=== PATIENT | male | born 1985 | race American Indian/Alaskan Native ===

== ENCOUNTER 2018-12-06 02:51 | Emergency (ER) | payer OTHER ==
[2018-12-06 03:32] VITALS: BP 156/94
[2018-12-06] MEDS ORDERED: LORazepam 2 MG/ML Syringe IVPUSH ONE (03:42)
[2018-12-06] MEDS ORDERED: Sodium Chloride 0.9% 1,000 ML IV ONE (03:42)
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
[2018-12-06 04:31] LABS: ANION GAP 17.5; CHLORIDE,CL 101 mmol/L (101-111); SODIUM,NA 138 mmol/L (135-145)
== END 2018-12-06 04:50 | disposition home or self-care (01) ==
LOC: DL.ED 02:51
DX: S63.619A Unspecified sprain of unspecified finger, initial encounter (principal); S00.33XA Contusion of nose, initial encounter; F10.10 Alcohol abuse, uncomplicated; F17.210 Nicotine dependence, cigarettes, uncomplicated; I10 Essential (primary) hypertension; Y04.0XXA Assault by unarmed brawl or fight, initial encounter
CPT/HCPCS: 36415; 70450; 70486; 73140; 80053; 85025; 96361; 96374; 99284; G0480; J2060; J7030

== ENCOUNTER 2018-12-13 04:13 | Emergency (ER) | payer OTHER ==
[2018-12-13] MEDS ORDERED: diphenhydrAMINE 25 MG Tab PO ONE (04:14)
[2018-12-13 04:22] VITALS: BP 132/107
[2018-12-13] MEDS ORDERED: Sodium Chloride 0.9% 1,000 ML IV ONE (04:30)
--- NOTE | 2018-12-13 04:33 | EDM.PDOCBH ---
ED HPI GENERAL MEDICAL PROBLEM - General Chief Complaint: Drug or Alcohol Abuse Stated Complaint: PERSONAL Time Seen by Provider: 12/13/18 04:31 Source of Information: Reports: Patient History Limitations: Reports: No Limitations - History of Present Illness INITIAL COMMENTS - FREE TEXT/NARRATIVE: states been drinking again and has shakes again. - Related Data Allergies Allergy/AdvReac Type Severity Reaction Status Date / Time No Known Allergies Allergy Verified 12/13/18 04:20 Home Meds: Home Meds . [No Known Home Meds] 10/31/18 [History] Past Medical History HEENT History: Reports: None Cardiovascular History: Reports: Hypertension Respiratory History: Reports: None Gastrointestinal History: Reports: Hepatitis Genitourinary History: Reports: None Musculoskeletal History: Reports: None Neurological History: Reports: Seizure Other Neuro History: when detoxing Psychiatric History: Reports: Addiction, Anxiety, Panic Attack Endocrine/Metabolic History: Reports: Obesity/BMI 30+ Hematologic History: Reports: None Immunologic History: Reports: None Oncologic (Cancer) History: Reports: None Dermatologic History: Reports: None - Infectious Disease History Infectious Disease History: Reports: Hepatitis C - Past Surgical History Head Surgeries/Procedures: Reports: None Cardiovascular Surgical History: Reports: None GI Surgical History: Reports: None Endocrine Surgical History: Reports: None Neurological Surgical History: Reports: None Dermatological Surgical History: Reports: None Social & Family History - Family History Family Medical History: Unobtainable - Tobacco Use Smoking Status *Q: Unknown Ever Smoked - Caffeine Use Caffeine Use: Reports: Tea - Alcohol Use Days Per Week of Alcohol Use: 7 Number of Drinks Per Day: 20 Total Drinks Per Week: 140 - Recreational Drug Use Recreational Drug Use: No ED ROS GENERAL - Review of Systems Review Of Systems: ROS reveals no pertinent complaints other than HPI. ED EXAM, BEHAVIORAL HEALTH - Physical Exam Exam: See Below Exam Limited By: No Limitations General Appearance: Alert, WD/WN, No Apparent Distress, Other (intox, co-op) Eye Exam: Bilateral Eye: PERRL (pupils ess ER @ 4mm) Ears: Hearing Grossly Normal Throat/Mouth: Normal Voice, No Airway Compromise Head: Atraumatic Neck: Non-Tender, Full Range of Motion Respiratory/Chest: No Respiratory Distress Cardiovascular: Regular Rate, Rhythm GI/Abdominal: Soft, Non-Tender Neurological: Alert, Normal Cognition, Normal Gait, No Motor/Sensory Deficits, Oriented x 3 Psychiatric: Flat Affect Skin Exam: Warm, Dry, Normal color COURSE, BEHAVIORAL HEALTH COMP - Course Vital Signs: Last Vital Signs Temp 36.4 C 12/13/18 04:20 Pulse 120 H 12/13/18 04:20 Resp 24 H 12/13/18 04:20 BP 132/107 H 12/13/18 04:20 Pulse Ox 98 12/13/18 04:20 Orders, Labs, Meds: Laboratory Tests 12/13/18 12/13/18 Range/Units 04:20 04:20 WBC 8.8 (5.0-10.0) 10^3/uL RBC 4.48 L (4.6-6.2) 10^6/uL Hgb 12.9 L (14.0-18.0) g/dL Hct 38.4 L (40.0-54.0) % MCV 85.7 (80-100) fL MCH 28.8 (27.0-34.0) pg MCHC 33.6 (33.0-35.0) g/dL Plt Count 206 (150-450) 10^3/uL Neut % (Auto) 58.2 (42.2-75.2) % Lymph % (Auto) 22.6 (20.5-50.1) % Brown % (Auto) 15.5 H (2-8) % Eos % (Auto) 2.7 (1.0-3.0) % Baso % (Auto) 1.0 (0.0-1.0) % Sodium 136 (135-145) mmol/L Potassium 3.7 (3.6-5.0) mmol/L Chloride 97 L (101-111) mmol/L Carbon Dioxide 23.0 (21.0-31.0) mmol/L Anion Gap 19.7 BUN 15 (7-18) mg/dL Creatinine 0.8 (0.6-1.3) mg/dL Est Cr Clr Drug Dosing 139.88 mL/min Estimated GFR (MDRD) > 60 BUN/Creatinine Ratio 18.75 Glucose 111 H (74-105) mg/dL Calcium 7.9 L (8.4-10.2) mg/dl Total Bilirubin 1.3 H (0.2-1.0) mg/dL AST 319 H (10-42) IU/L ALT 132 H (10-60) IU/L Alkaline Phosphatase 188 H (42-121) IU/L Total Protein 8.8 H (6.7-8.2) g/dl Albumin 3.9 (3.2-5.5) g/dl Globulin 4.9 Albumin/Globulin Ratio 0.80 Ethyl Alcohol 367 mg/dL Medications Discontinued Medications Generic Name Dose Route Start Last Admin Trade Name Vikram PRN Reason Stop Dose Admin Diphenhydramine HCl Confirm 12/13/18 05:58 Benadryl Administered 12/13/18 05:59 Dose 25 mg .ROUTE .STK-MED ONE Diphenhydramine HCl 25 mg 12/13/18 04:14 Benadryl PO 12/13/18 04:15 .STK-MED ONE Sodium Chloride 1,000 mls @ 999 mls/hr 12/13/18 04:30 12/13/18 04:38 Normal Saline IV 12/13/18 05:30 999 mls/hr .BOLUS ONE Administration Re-Assessment/Re-Exam: results discussed with pt who states he is trying to stop drinking. Departure - Departure Time of Disposition: 06:00 Disposition: Home, Self-Care 01 Condition: Fair Clinical Impression: Alcohol abuse - Discharge Information Instructions: Alcohol Intoxication, [id number] Forms: ED Department Discharge Additional Instructions: 1) don't drink alcohol 2) see clinic for alcohol problem rx togo; benadryl 25mg x 1
[2018-12-13 04:46] LABS: ANION GAP 19.7; CHLORIDE,CL 97 mmol/L (101-111); SODIUM,NA 136 mmol/L (135-145)
[2018-12-13] MEDS ORDERED: diphenhydrAMINE 25 MG Tab ONE (05:58)
== END 2018-12-13 06:03 | disposition home or self-care (01) ==
LOC: DL.ED 04:13
DX: F10.129 Alcohol abuse with intoxication, unspecified (principal); I10 Essential (primary) hypertension; Y90.8 Blood alcohol level of 240 mg/100 ml or more
CPT/HCPCS: 36415; 80053; 85025; 96365; 96366; 99284; A9270; G0480; J7030

== ENCOUNTER 2018-12-19 21:43 | Emergency (ER) | payer OTHER ==
[2018-12-19] MEDS ORDERED: MVI, Adult with Vitamin K 10 ML, Folic Acid 1 MG, Thiamine 100 MG in Lactated Ringers 1... IV ONE ×4 (21:59)
[2018-12-19] MEDS ORDERED: Ondansetron 4 MG/2 ML SDV IV ONE ×2 (21:59→22:31)
[2018-12-19] MEDS ORDERED: LORazepam 2 MG/ML Syringe IVPUSH ONE ×2 (22:31→23:07)
[2018-12-19] MEDS ORDERED: Pantoprazole 40 MG Vial IVPUSH ONE (22:32)
[2018-12-19 22:42] LABS: ANION GAP 22.5; CHLORIDE,CL 96 mmol/L (101-111); SODIUM,NA 136 mmol/L (135-145)
--- NOTE | 2018-12-19 23:32 | EDM.PDOCBH ---
ED HPI GENERAL MEDICAL PROBLEM - General Chief Complaint: Drug or Alcohol Abuse Stated Complaint: WILL TELL U WHEN HE SEES U Time Seen by Provider: 12/19/18 22:05 Source of Information: Reports: Patient History Limitations: Reports: No Limitations - History of Present Illness INITIAL COMMENTS - FREE TEXT/NARRATIVE: ED ambulatory with c/o wanting to stop drinking. Reporting use of 3 gallons per day since September. Had been sober for one year prior. Hx of withdrawl seizures, . Feels anxious and shaking. Has been vomiting, stated vomiting blood yesterday and had dark stool. last ETOH drink 0400 - Related Data Allergies Allergy/AdvReac Type Severity Reaction Status Date / Time No Known Allergies Allergy Verified 12/19/18 22:00 Home Meds: Home Meds . [No Known Home Meds] 10/31/18 [History] CIWAA - CIWAA CIWAA Nausea And Vomitin - Intermittent Nausea with Dry Heaves CIWAA Tremor: 4 - Moderate, with Patient's Arms Extended CIWAA Paroxysmal Sweats: 1 - Barely Perceptible Sweating, Palms Moist CIWAA Anxiety: 3 CIWAA Agitation: 2 CIWAA Tactile Disturbances: 2 - Mild Itching, Pins and [place], Burning or Numbness CIWAA Auditory Disturbances: 2 - Mild Harshness or Ability to Frighten CIWAA Visual Disturbances: 2 - Mild Sensitivity CIWAA Headache, Fullness in Head: 0 - Not Present CIWAA Orientation And Clouding Of Sensorium: 0 - Oriented and Can do Serial Additions CIWAA Scale Score: 20 Past Medical History HEENT History: Reports: Epistaxis Cardiovascular History: Reports: Hypertension Respiratory History: Reports: None Gastrointestinal History: Reports: Hepatitis Genitourinary History: Reports: None Musculoskeletal History: Reports: None Neurological History: Reports: Seizure Other Neuro History: when detoxing Psychiatric History: Reports: Addiction, Anxiety, Panic Attack Endocrine/Metabolic History: Reports: Obesity/BMI 30+ Hematologic History: Reports: None Immunologic History: Reports: None Oncologic (Cancer) History: Reports: None Dermatologic History: Reports: None - Infectious Disease History Infectious Disease History: Reports: Hepatitis C - Past Surgical History Head Surgeries/Procedures: Reports: None Cardiovascular Surgical History: Reports: None GI Surgical History: Reports: None Endocrine Surgical History: Reports: None Neurological Surgical History: Reports: None Dermatological Surgical History: Reports: None Social & Family History - Family History Family Medical History: Unobtainable - Tobacco Use Smoking Status *Q: Current Some Day Smoker Years of Tobacco use: 15 Packs/Tins Daily: 0.1 Second Hand Smoke Exposure: Yes - Caffeine Use Caffeine Use: Reports: Coffee, Soda - Alcohol Use Days Per Week of Alcohol Use: 7 Number of Drinks Per Day: 4 Total Drinks Per Week: 28 Date of Last Drink: 12/19/18 Time of Last Drink: 04:00 - Recreational Drug Use Recreational Drug Use: Yes Recreational Drug Type: Reports: Marijuana/Hashish Recreational Drug Use Frequency: Binges ED ROS GENERAL - Review of Systems Review Of Systems: ROS reveals no pertinent complaints other than HPI. ED EXAM, BEHAVIORAL HEALTH - Physical Exam Exam: See Below Exam Limited By: No Limitations General Appearance: Alert, Moderate Distress Eye Exam: Bilateral Eye: EOMI (blood shot, faint icterus), Nystagmus (horizontal ), PERRL Ears: Normal External Exam Nose: Other (dried blood in nares) Head: Atraumatic, Normocephalic Neck: Normal Inspection Respiratory/Chest: No Respiratory Distress, Lungs Clear Cardiovascular: Normal Peripheral Pulses, Regular Rate, Rhythm GI/Abdominal: Soft, Tender (mild epigastric) Rectal (Males) Exam: Normal Rectal Tone, Heme + Stool Back Exam: Normal Inspection, Full Range of Motion Extremities: Normal Inspection, Normal Range of Motion Neurological: Alert, Normal Cognition, Oriented x 3, Other (tremors) Psychiatric: Alert, Restless (anxious), Auditory Hallucinations, Visual Hallucinations Skin Exam: Warm, Dry, Intact, Normal color COURSE, BEHAVIORAL HEALTH COMP - Course Vital Signs: Last Vital Signs Temp 99 F 12/19/18 23:35 Pulse 77 12/19/18 23:35 Resp 17 12/19/18 23:35 BP 139/79 12/19/18 23:35 Pulse Ox 98 12/19/18 23:35 Orders, Labs, Meds: Laboratory Tests 12/19/18 12/19/18 12/20/18 Range/Units 22:08 22:08 00:10 WBC 5.2 (5.0-10.0) 10^3/uL RBC 4.29 L (4.6-6.2) 10^6/uL Hgb 12.5 L (14.0-18.0) g/dL Hct 37.0 L (40.0-54.0) % MCV 86.2 (80-100) fL MCH 29.1 (27.0-34.0) pg MCHC 33.8 (33.0-35.0) g/dL Plt Count 142 L (150-450) 10^3/uL Neut % (Auto) 72.5 (42.2-75.2) % Lymph % (Auto) 11.7 L (20.5-50.1) % Norman % (Auto) 13.0 H (2-8) % Eos % (Auto) 1.5 (1.0-3.0) % Baso % (Auto) 1.3 H (0.0-1.0) % Sodium 136 (135-145) mmol/L Potassium 3.5 L (3.6-5.0) mmol/L Chloride 96 L (101-111) mmol/L Carbon Dioxide 21.0 (21.0-31.0) mmol/L Anion Gap 22.5 BUN 16 (7-18) mg/dL Creatinine 0.9 (0.6-1.3) mg/dL Est Cr Clr Drug Dosing 124.34 mL/min Estimated GFR (MDRD) > 60 BUN/Creatinine Ratio 17.77 Glucose 142 H (74-105) mg/dL Calcium 8.7 (8.4-10.2) mg/dl Total Bilirubin 1.6 H (0.2-1.0) mg/dL AST 390 H (10-42) IU/L ALT 159 H (10-60) IU/L Alkaline Phosphatase 173 H (42-121) IU/L Total Protein 8.8 H (6.7-8.2) g/dl Albumin 4.1 (3.2-5.5) g/dl Globulin 4.7 Albumin/Globulin Ratio 0.87 Amylase 33 (28-100) U/L Lipase 43 (22-51) U/L Urine Color Dark yellow (YELLOW) Urine Appearance Slightly cloudy (CLEAR) Urine pH 7.0 (5.0-9.0) Ur Specific Buford 1.025 (1.005-1.030) Urine Protein >=300 H (NEGATIVE) Urine Glucose (UA) Negative (NEGATIVE) Urine Ketones 15 H (NEGATIVE) Urine Occult Blood Trace-intact H (NEGATIVE) Urine Nitrite Negative (NEGATIVE) Urine Bilirubin Moderate H (NEGATIVE) Urine Urobilinogen 4.0 H (0.2-1.0) mg/dL Ur Leukocyte Esterase Negative (NEGATIVE) Urine RBC 10-20 H /HPF Urine WBC 0-5 (0-5/HPF) /HPF Ur Epithelial Cells Few /HPF Urine Bacteria Many H (0-FEW/HPF) /HPF Granular Casts Few /LPF Urine Mucus Many H /LPF Urine Opiates Screen (NEGATIVE) Ur Oxycodone Screen (NEGATIVE) Urine Methadone Screen (NEGATIVE) Ur Barbiturates Screen (NEGATIVE) U Tricyclic Antidepress (NEGATIVE) Ur Phencyclidine Scrn (NEGATIVE) Ur Amphetamine Screen (NEGATIVE) U Methamphetamines Scrn (NEGATIVE) Urine MDMA Screen (NEGATIVE) U Benzodiazepines Scrn (NEGATIVE) Urine Cocaine Screen (NEGATIVE) U Marijuana (THC) Screen (NEGATIVE) Ethyl Alcohol 243 mg/dL 12/20/18 Range/Units 00:10 WBC (5.0-10.0) 10^3/uL RBC (4.6-6.2) 10^6/uL Hgb (14.0-18.0) g/dL Hct (40.0-54.0) % MCV (80-100) fL MCH (27.0-34.0) pg MCHC (33.0-35.0) g/dL Plt Count (150-450) 10^3/uL Neut % (Auto) (42.2-75.2) % Lymph % (Auto) (20.5-50.1) % Norman % (Auto) (2-8) % Eos % (Auto) (1.0-3.0) % Baso % (Auto) (0.0-1.0) % Sodium (135-145) mmol/L Potassium (3.6-5.0) mmol/L Chloride (101-111) mmol/L Carbon Dioxide (21.0-31.0) mmol/L Anion Gap BUN (7-18) mg/dL Creatinine (0.6-1.3) mg/dL Est Cr Clr Drug Dosing mL/min Estimated GFR (MDRD) BUN/Creatinine Ratio Glucose (74-105) mg/dL Calcium (8.4-10.2) mg/dl Total Bilirubin (0.2-1.0) mg/dL AST (10-42) IU/L ALT (10-60) IU/L Alkaline Phosphatase (42-121) IU/L Total Protein (6.7-8.2) g/dl Albumin (3.2-5.5) g/dl Globulin Albumin/Globulin Ratio Amylase (28-100) U/L Lipase (22-51) U/L Urine Color (YELLOW) Urine Appearance (CLEAR) Urine pH (5.0-9.0) Ur Specific Buford (1.005-1.030) Urine Protein (NEGATIVE) Urine Glucose (UA) (NEGATIVE) Urine Ketones (NEGATIVE) Urine Occult Blood (NEGATIVE) Urine Nitrite (NEGATIVE) Urine Bilirubin (NEGATIVE) Urine Urobilinogen (0.2-1.0) mg/dL Ur Leukocyte Esterase (NEGATIVE) Urine RBC /HPF Urine WBC (0-5/HPF) /HPF Ur Epithelial Cells /HPF Urine Bacteria (0-FEW/HPF) /HPF Granular Casts /LPF Urine Mucus /LPF Urine Opiates Screen Negative (NEGATIVE) Ur Oxycodone Screen Negative (NEGATIVE) Urine Methadone Screen Negative (NEGATIVE) Ur Barbiturates Screen Negative (NEGATIVE) U Tricyclic Antidepress Negative (NEGATIVE) Ur Phencyclidine Scrn Negative (NEGATIVE) Ur Amphetamine Screen Negative (NEGATIVE) U Methamphetamines Scrn Negative (NEGATIVE) Urine MDMA Screen Negative (NEGATIVE) U Benzodiazepines Scrn Positive H (NEGATIVE) Urine Cocaine Screen Negative (NEGATIVE) U Marijuana (THC) Screen Negative (NEGATIVE) Ethyl Alcohol mg/dL Medications Discontinued Medications Generic Name Dose Route Start Last Admin Trade Name Freq PRN Reason Stop Dose Admin Multivitamins/Minerals 10 ml/ 1,011.2 mls @ 999 mls/hr 12/19/18 21:59 22:16 Folic Acid 1 mg/ Thiamine HCl IV 12/19/18 22:59 999 mls/hr 100 mg/ Lactated Ringer's ONETIME ONE Administration Lorazepam 1 mg 12/19/18 22:31 12/19/18 22:53 Ativan IVPUSH 12/19/18 22:32 1 mg ONETIME ONE Administration Lorazepam 1 mg 12/19/18 23:07 12/19/18 23:13 Ativan IVPUSH 12/19/18 23:08 1 mg ONETIME ONE Administration Lorazepam 2 mg 12/20/18 00:12 12/20/18 00:18 Ativan IVPUSH 12/20/18 00:13 2 mg ONETIME ONE Administration Lorazepam Confirm 12/20/18 00:13 12/20/18 00:20 Ativan Administered 12/20/18 00:14 Not Given Dose 2 mg .ROUTE .STK-MED ONE Ondansetron HCl 4 mg 12/19/18 21:59 12/19/18 22:15 Zofran IV 12/19/18 22:00 4 mg ONETIME ONE Administration Ondansetron HCl 4 mg 12/19/18 22:31 12/19/18 22:58 Zofran IV 12/19/18 22:32 Not Given ONETIME ONE Pantoprazole Sodium 40 mg 12/19/18 22:32 12/19/18 22:58 Protonix Iv IVPUSH 12/19/18 22:33 40 mg ONETIME ONE Administration Re-Assessment/Re-Exam: Elevated [place], Withdrawal seizure risk, bloody emesis, Tx [facility] for higher care , Ativan available enroute . Tx via [facility] Departure - Departure Time of Disposition: 00:15 Disposition: DC/Tfer to Acute Hospital 02 Condition: Undetermined Clinical Impression: Alcohol abuse Alcohol withdrawal syndrome Qualifiers: Complication of substance-induced condition: with unspecified complication Qualified Code(s): F10.239 - Alcohol dependence with withdrawal, unspecified - Discharge Information *PRESCRIPTION DRUG MONITORING PROGRAM REVIEWED*: No *COPY OF PRESCRIPTION DRUG MONITORING REPORT IN PATIENT EDWARD: No Referrals: PCP,Unobtain [Primary Care Provider] - Forms: ED Department Discharge
[2018-12-19 23:35] VITALS: BP 139/79
[2018-12-20] MEDS ORDERED: LORazepam 2 MG/ML Syringe IVPUSH ONE (00:12)
[2018-12-20] MEDS ORDERED: LORazepam 2 MG/ML Syringe ONE (00:13)
== END 2018-12-20 00:18 ==
LOC: DL.ED 21:43
DX: F10.239 Alcohol dependence with withdrawal, unspecified (principal); Y90.8 Blood alcohol level of 240 mg/100 ml or more; F17.210 Nicotine dependence, cigarettes, uncomplicated; I10 Essential (primary) hypertension; E66.9 Obesity, unspecified
CPT/HCPCS: 36415; 80053; 80305-QW; 81001; 82150; 82272; 83690; 85025; 96365; 96366; 96375; 96376; 99285; C9113; G0480; J2060; J2405; J3411; J3490; J7120

== ENCOUNTER 2019-02-16 18:05 | Emergency (ER) | payer SELFPAY ==
[2019-02-16 18:44] VITALS: BP 148/90
--- NOTE | 2019-02-16 19:09 | EDM.PDOCBH ---
ED HPI GENERAL MEDICAL PROBLEM - General Chief Complaint: Drug or Alcohol Abuse Stated Complaint: FLU Time Seen by Provider: 02/16/19 19:04 Source of Information: Reports: Patient History Limitations: Reports: No Limitations - History of Present Illness INITIAL COMMENTS - FREE TEXT/NARRATIVE: states been drinking everyday, now feeling poorly aches all over and has turned yellow. states lost his job. been vomiting daily and no appetite. can take liquids but mostly alcohol. Right Abdomen Pain Score (Numeric/FACES): 10 - Related Data Allergies Allergy/AdvReac Type Severity Reaction Status Date / Time No Known Allergies Allergy Verified 02/16/19 18:42 Home Meds: Home Meds . [No Known Home Meds] 10/31/18 [History] Past Medical History HEENT History: Reports: Epistaxis Cardiovascular History: Reports: Hypertension Respiratory History: Reports: None Gastrointestinal History: Reports: Hepatitis Genitourinary History: Reports: None Musculoskeletal History: Reports: None Neurological History: Reports: Seizure Other Neuro History: when detoxing Psychiatric History: Reports: Addiction, Anxiety, Panic Attack Endocrine/Metabolic History: Reports: Obesity/BMI 30+ Hematologic History: Reports: None Immunologic History: Reports: None Oncologic (Cancer) History: Reports: None Dermatologic History: Reports: None - Infectious Disease History Infectious Disease History: Reports: Hepatitis C - Past Surgical History Head Surgeries/Procedures: Reports: None Cardiovascular Surgical History: Reports: None GI Surgical History: Reports: None Endocrine Surgical History: Reports: None Neurological Surgical History: Reports: None Dermatological Surgical History: Reports: None Social & Family History - Family History Family Medical History: Unobtainable - Tobacco Use Smoking Status *Q: Current Some Day Smoker Years of Tobacco use: 2 Packs/Tins Daily: 0.5 Used Tobacco, but Quit: Yes Month/Year Tobacco Last Used: 02/04 - Caffeine Use Caffeine Use: Reports: Soda - Alcohol Use Days Per Week of Alcohol Use: 7 Number of Drinks Per Day: 0 Total Drinks Per Week: 0 Date of Last Drink: 02/16/19 Time of Last Drink: 04:30 - Recreational Drug Use Recreational Drug Use: Yes Recreational Drug Type: Reports: Marijuana/Hashish ED ROS GENERAL - Review of Systems Review Of Systems: ROS reveals no pertinent complaints other than HPI. ED EXAM, BEHAVIORAL HEALTH - Physical Exam Exam: See Below Exam Limited By: No Limitations General Appearance: Alert, WD/WN, Mild Distress, Other (general discomfort) Eye Exam: Bilateral Eye: PERRL (pupils ER @ 4mm), Other (icteric) Ears: Hearing Grossly Normal Throat/Mouth: Normal Voice, No Airway Compromise Head: Atraumatic Neck: Non-Tender, Full Range of Motion Respiratory/Chest: No Respiratory Distress Cardiovascular: Regular Rate, Rhythm GI/Abdominal: Tender, Other (epiG discomfort). No: Distended, Guarding, Rigid, Rebound Neurological: Alert, Normal Cognition, Normal Gait, No Motor/Sensory Deficits, Oriented x 3 Psychiatric: Flat Affect Skin Exam: Warm, Dry, Other (jaundice) COURSE, BEHAVIORAL HEALTH COMP - Course Vital Signs: Last Vital Signs Temp 36.3 C 02/16/19 18:43 Pulse 101 H 02/16/19 18:43 Resp 16 02/16/19 18:43 BP 148/90 H 02/16/19 18:43 Pulse Ox 99 02/16/19 18:43 Orders, Labs, Meds: Active Orders 24 hr Category Date Time Status AMYLASE [CHEM] Stat Lab 02/16/19 19:23 Received CULTURE BLOOD [BC] Stat Lab 02/16/19 19:23 Received LIPASE [CHEM] Stat Lab 02/16/19 19:23 Received Potassium Chloride [KCl 10 MEQ in Water 100 ML] 10 meq Med 02/16/19 21:20 Active Premix Bag 1 bag IV ONETIME Sodium Chloride 0.9% [Normal Saline] 1,000 ml Med 02/16/19 21:20 Active IV .BOLUS Medication Orders Potassium Chloride 10 meq/ (Premix) 100 mls @ 100 mls/hr IV ONETIME ONE Stop: 02/16/19 22:19 Sodium Chloride (Normal Saline) 1,000 mls @ 999 mls/hr IV .BOLUS ONE Stop: 02/16/19 22:20 Laboratory Tests 02/16/19 02/16/19 02/16/19 Range/Units 19:23 19:23 19:23 WBC 8.3 (5.0-10.0) 10^3/uL RBC 3.82 L (4.6-6.2) 10^6/uL Hgb 11.8 L (14.0-18.0) g/dL Hct 33.5 L (40.0-54.0) % MCV 87.7 (80-100) fL MCH 30.9 (27.0-34.0) pg MCHC 35.2 H (33.0-35.0) g/dL Plt Count 278 D (150-450) 10^3/uL Neut % (Auto) 77.2 H (42.2-75.2) % Lymph % (Auto) 9.6 L (20.5-50.1) % Douglas % (Auto) 12.1 H (2-8) % Eos % (Auto) 0.5 L (1.0-3.0) % Baso % (Auto) 0.6 (0.0-1.0) % Sodium 127 L (135-145) mmol/L Potassium 2.7 L (3.6-5.0) mmol/L Chloride 93 L (101-111) mmol/L Carbon Dioxide 19.0 L (21.0-31.0) mmol/L Anion Gap 17.7 BUN 5 L (7-18) mg/dL Creatinine 0.5 L (0.6-1.3) mg/dL Est Cr Clr Drug Dosing 223.81 mL/min Estimated GFR (MDRD) > 60 BUN/Creatinine Ratio 10.00 Glucose 145 H (74-105) mg/dL Lactic Acid (0.5-2.2) mmol/L Calcium 8.3 L (8.4-10.2) mg/dl Total Bilirubin 6.7 H (0.2-1.0) mg/dL AST 187 H (10-42) IU/L ALT 87 H (10-60) IU/L Alkaline Phosphatase 194 H (42-121) IU/L Ammonia 55 H (11-35) umol/L Total Protein 7.5 (6.7-8.2) g/dl Albumin 3.3 (3.2-5.5) g/dl Globulin 4.2 Albumin/Globulin Ratio 0.79 Urine Color (YELLOW) Urine Appearance (CLEAR) Urine pH (5.0-9.0) Ur Specific [place] (1.005-1.030) Urine Protein (NEGATIVE) Urine Glucose (UA) (NEGATIVE) Urine Ketones (NEGATIVE) Urine Occult Blood (NEGATIVE) Urine Nitrite (NEGATIVE) Urine Bilirubin (NEGATIVE) Urine Urobilinogen (0.2-1.0) mg/dL Ur Leukocyte Esterase (NEGATIVE) Urine RBC /HPF Urine WBC (0-5/HPF) /HPF Ur Epithelial Cells /HPF Amorphous Sediment (0/HPF) /HPF Urine Bacteria (0-FEW/HPF) /HPF Urine Mucus /LPF Urine Opiates Screen (NEGATIVE) Ur Oxycodone Screen (NEGATIVE) Urine Methadone Screen (NEGATIVE) Ur Barbiturates Screen (NEGATIVE) U Tricyclic Antidepress (NEGATIVE) Ur Phencyclidine Scrn (NEGATIVE) Ur Amphetamine Screen (NEGATIVE) U Methamphetamines Scrn (NEGATIVE) Urine MDMA Screen (NEGATIVE) U Benzodiazepines Scrn (NEGATIVE) Urine Cocaine Screen (NEGATIVE) U Marijuana (THC) Screen (NEGATIVE) Ethyl Alcohol 181 mg/dL 02/16/19 02/16/19 02/16/19 Range/Units 19:23 20:05 20:05 WBC (5.0-10.0) 10^3/uL RBC (4.6-6.2) 10^6/uL Hgb (14.0-18.0) g/dL Hct (40.0-54.0) % MCV (80-100) fL MCH (27.0-34.0) pg MCHC (33.0-35.0) g/dL Plt Count (150-450) 10^3/uL Neut % (Auto) (42.2-75.2) % Lymph % (Auto) (20.5-50.1) % Douglas % (Auto) (2-8) % Eos % (Auto) (1.0-3.0) % Baso % (Auto) (0.0-1.0) % Sodium (135-145) mmol/L Potassium (3.6-5.0) mmol/L Chloride (101-111) mmol/L Carbon Dioxide (21.0-31.0) mmol/L Anion Gap BUN (7-18) mg/dL Creatinine (0.6-1.3) mg/dL Est Cr Clr Drug Dosing mL/min Estimated GFR (MDRD) BUN/Creatinine Ratio Glucose (74-105) mg/dL Lactic Acid 4.0 H (0.5-2.2) mmol/L Calcium (8.4-10.2) mg/dl Total Bilirubin (0.2-1.0) mg/dL AST (10-42) IU/L ALT (10-60) IU/L Alkaline Phosphatase (42-121) IU/L Ammonia (11-35) umol/L Total Protein (6.7-8.2) g/dl Albumin (3.2-5.5) g/dl Globulin Albumin/Globulin Ratio Urine Color Dark yellow (YELLOW) Urine Appearance Slightly cloudy (CLEAR) Urine pH 8.5 (5.0-9.0) Ur Specific [place] 1.010 (1.005-1.030) Urine Protein 30 H (NEGATIVE) Urine Glucose (UA) Negative (NEGATIVE) Urine Ketones Negative (NEGATIVE) Urine Occult Blood Trace-intact H (NEGATIVE) Urine Nitrite Negative (NEGATIVE) Urine Bilirubin Large H (NEGATIVE) Urine Urobilinogen 1.0 (0.2-1.0) mg/dL Ur Leukocyte Esterase Negative (NEGATIVE) Urine RBC 0-5 /HPF Urine WBC 0-5 (0-5/HPF) /HPF Ur Epithelial Cells Rare /HPF Amorphous Sediment Rare (0/HPF) /HPF Urine Bacteria Rare (0-FEW/HPF) /HPF Urine Mucus Rare /LPF Urine Opiates Screen Negative (NEGATIVE) Ur Oxycodone Screen Negative (NEGATIVE) Urine Methadone Screen Negative (NEGATIVE) Ur Barbiturates Screen Negative (NEGATIVE) U Tricyclic Antidepress Negative (NEGATIVE) Ur Phencyclidine Scrn Negative (NEGATIVE) Ur Amphetamine Screen Negative (NEGATIVE) U Methamphetamines Scrn Negative (NEGATIVE) Urine MDMA Screen Negative (NEGATIVE) U Benzodiazepines Scrn Negative (NEGATIVE) Urine Cocaine Screen Negative (NEGATIVE) U Marijuana (THC) Screen Positive H (NEGATIVE) Ethyl Alcohol mg/dL Medications Generic Name Dose Route Start Last Admin Trade Name Freq PRN Reason Stop Dose Admin Potassium Chloride 10 meq/ 100 mls @ 100 mls/hr 02/16/19 21:20 Premix IV 02/16/19 22:19 ONETIME ONE Sodium Chloride 1,000 mls @ 999 mls/hr 02/16/19 21:20 Normal Saline IV 02/16/19 22:20 .BOLUS ONE Discontinued Medications Generic Name Dose Route Start Last Admin Trade Name Freq PRN Reason Stop Dose Admin Diphenhydramine HCl 12.5 mg 02/16/19 19:12 02/16/19 19:29 Benadryl IVPUSH 02/16/19 19:13 12.5 mg ONETIME ONE Administration Folic Acid Confirm 02/16/19 19:25 02/16/19 19:49 Folic Acid Administered 02/16/19 19:26 Not Given Dose 50 mg .ROUTE .STK-MED ONE Folic Acid Confirm 02/16/19 19:26 02/16/19 19:50 Folic Acid Administered 02/16/19 19:27 Not Given Dose 50 mg .ROUTE .STK-MED ONE Multivitamins/Minerals 10 ml/ 1,011.2 mls @ 999 mls/hr 02/16/19 19:10 19:30 Folic Acid 1 mg/ Thiamine HCl IV 02/16/19 20:10 999 mls/hr 100 mg/ Lactated Ringer's ONETIME ONE Administration Iopamidol 100 ml 02/16/19 19:26 02/16/19 19:33 Isovue-300 (61%) IVPUSH 02/16/19 19:27 100 ml ONETIME ONE Administration Lorazepam 1 mg 02/16/19 19:56 02/16/19 20:04 Ativan IVPUSH 02/16/19 19:57 1 mg ONETIME ONE Administration Pantoprazole Sodium 40 mg 02/16/19 19:14 02/16/19 19:28 Protonix Iv IVPUSH 02/16/19 19:15 40 mg ONETIME ONE Administration Re-Assessment/Re-Exam: case discussed with Dr Reynolds @ who kindly accepted pt Departure - Departure Time of Disposition: 21:53 Disposition: DC/Tfer to [facility] Condition: Fair Clinical Impression: Alcohol withdrawal syndrome Qualifiers: Complication of substance-induced condition: with unspecified complication Qualified Code(s): F10.239 - Alcohol dependence with withdrawal, unspecified - Discharge Information Forms: Interfacility Transfer EMTALA - My Orders Last 24 Hours: My Active Orders 02/16/19 19:23 AMYLASE [CHEM] Stat CULTURE BLOOD [BC] Stat LIPASE [CHEM] Stat 02/16/19 21:20 Potassium Chloride [KCl 10 MEQ in Water 100 ML] 10 meq Premix Bag 1 bag IV ONETIME Sodium Chloride 0.9% [Normal Saline] 1,000 ml IV .BOLUS - Assessment/Plan Last 24 Hours: My Active Orders 02/16/19 19:23 AMYLASE [CHEM] Stat CULTURE BLOOD [BC] Stat LIPASE [CHEM] Stat 02/16/19 21:20 Potassium Chloride [KCl 10 MEQ in Water 100 ML] 10 meq Premix Bag 1 bag IV ONETIME Sodium Chloride 0.9% [Normal Saline] 1,000 ml IV .BOLUS
[2019-02-16] MEDS ORDERED: MVI, Adult with Vitamin K 10 ML, Folic Acid 1 MG, Thiamine 100 MG in Lactated Ringers 1... IV ONE ×4 (19:10)
[2019-02-16] MEDS ORDERED: diphenhydrAMINE 50 MG/ML SDV IVPUSH ONE (19:12)
[2019-02-16] MEDS ORDERED: Pantoprazole 40 MG Vial IVPUSH ONE (19:14)
[2019-02-16] MEDS ORDERED: Folic Acid 50 MG/10 ML MDV ONE ×2 (19:25→19:26)
[2019-02-16] MEDS ORDERED: Iopamidol 612 MG/ML 100 ML Bottle IVPUSH ONE (19:26)
[2019-02-16 19:48] LABS: ANION GAP 17.7; CHLORIDE,CL 93 mmol/L (101-111); SODIUM,NA 127 mmol/L (135-145)
[2019-02-16] MEDS ORDERED: LORazepam 2 MG/ML Syringe IVPUSH ONE ×2 (19:56→21:55)
[2019-02-16] MEDS ORDERED: Potassium Chloride 10 MEQ in Premix Bag 1 BAG IV ONE (21:20)
[2019-02-16] MEDS ORDERED: Sodium Chloride 0.9% 1,000 ML IV ONE (21:20)
== END 2019-02-16 22:30 ==
LOC: DL.ED 18:05
DX: F10.239 Alcohol dependence with withdrawal, unspecified (principal); F17.210 Nicotine dependence, cigarettes, uncomplicated; I10 Essential (primary) hypertension
CPT/HCPCS: 36415; 71045; 74177; 80053; 80305; 81001; 82140; 82150; 83605; 83690; 85025; 87040; 96365; 96367; 96368; 96375; 99285; C9113; G0480; J1200; J2060; J3411; J3480; J7030; J7120; Q9967; J3490